=== PATIENT | female | born 1985 | race Caucasian/White ===

== ENCOUNTER 2016-11-26 11:25 | Emergency (ER) | payer MEDICAID ==
[~2016-11-26] VITALS: Ht 154.9 cm; Wt 77.3 kg
[2016-11-26 11:32] VITALS: BP 135/91; PULSE 87; TEMP 98.2
[2016-11-26] MEDS ORDERED: GLUCOPHAGE500 MG/TAB PO (11:54)
[2016-11-26 14:18] LABS: CHLAMYDIA/TRACH by PCR Female NOT DETECTED; NEISSERIA GON by PCR Female NOT DETECTED
== END 2016-11-26 13:58 | disposition home or self-care (01) ==
LOC: COL.ER 11:25
PROVIDERS: Nurse Practitioner
DX: N93.8 Other specified abnormal uterine and vaginal bleeding (principal)

== ENCOUNTER 2017-03-06 11:19 | Emergency (ER) | payer MEDICAID ==
[~2017-03-06] VITALS: Ht 154.9 cm; Wt 81.8 kg
[~2017-03-06 11:19] MED LIST: GLUCOPHAGE500 MG/TAB PO
[2017-03-06 11:21] VITALS: BP 144/85; TEMP 98.5
[2017-03-06] MEDS ORDERED: MUCINEX 60600 MG/TA1 PO (11:24)
[2017-03-06] MEDS ORDERED: NIZORAL CR 60GM TOP (12:20)
[2017-03-06 12:25] VITALS: PULSE 94
== END 2017-03-06 12:26 | disposition home or self-care (01) ==
LOC: COL.ER 11:19
DX: R21 Rash and other nonspecific skin eruption (principal)

== ENCOUNTER 2017-05-20 05:57 | Emergency (ER) | payer MEDICAID ==
[~2017-05-20] VITALS: Ht 154.9 cm; Wt 82.5 kg
[~2017-05-20 05:57] MED LIST changes: +MUCINEX 60600 MG/TA1 PO; +NIZORAL CR 60GM TOP
[2017-05-20 06:07] VITALS: BP 140/96; TEMP 97
[2017-05-20] MEDS ORDERED: SINGULAIR 110 MG/TAB PO (06:15)
[2017-05-20 06:35] LABS: PH 6 (5-8); SQUAMOUS EPITHELIAL 0-2 /hpf; URINE APPEARANCE Clear; URINE BACTERIA None Seen /hpf; URINE BILIRUBIN Negative (NEGATIVE); URINE BLOOD 1+ (NEGATIVE); URINE COLOR Yellow; URINE GLUCOSE Negative (NEGATIVE); URINE KETONE Negative (NEGATIVE); URINE RBC 0-2 /hpf; URINE UROBILINOGEN Negative (NEGATIVE); URINE WBC 0-2 /hpf
[2017-05-20] MEDS ORDERED: CIPRO 500MG TA500 MG PO (06:50)
[2017-05-20] MEDS ORDERED: PYRIDIUM200 M1 PO (06:50)
[2017-05-20 06:59] VITALS: PULSE 80
== END 2017-05-20 06:50 | disposition home or self-care (01) ==
LOC: COL.ER 05:57
PROVIDERS: Emergency Medicine
DX: R30.0 Dysuria (principal); Z87.42 Personal history of other diseases of the female genital tract; Z79.84 Long term (current) use of oral hypoglycemic drugs